=== PATIENT | female | born 1940 | race Caucasian/White ===

== ENCOUNTER 2024-02-24 11:02 | Emergency (ER) | payer OTHER, SELFPAY ==
[2024-02-24 11:10] VITALS: BP 154/67
[2024-02-24 11:33] VITALS: BMI 19.7
--- NOTE | 2024-02-24 11:46 | ED.GENMED ---
History of Present Illness
General
Chief Complaint: Extremity Pain (non-traumatic)
Source: patient and family
Exam Limitations: none
Time Seen by Provider: 02/24/24 11:25
History of Present Illness
History of Present Illness:
FOOSH injury last night. Complaining of pain right hand. No other injury or complaint no head injury no syncope
Past History
Past History
ED Past Medical History: HTN, Hypercholesterolemia and NIDDM; Negative Asthma, CAD, MO or Renal failure
ED Past Surgical History: Negative Cardiac
Social History
Tobacco: Non-smoker
Alcohol: None
Drug: None
Living: with family
Employment: Retired
Family History
Family History: Hypertension
Review of Systems
Review of Systems
All Other Systems: Not applicable
Phy Exam
Physical Exam
Physical Exam:
General: Nontoxic appearing in no distress. Normocephalic atraumatic
Neck: Nontender
Skin: Warm and dry, no rash
Neuro: Alert, nontoxic, grossly nonfocal
Psychiatric: Good eye contact and appropriate
Musculoskeletal: Swelling of the right hand mid hand with ecchymosis and tenderness. No deformity. Wrist nontender. Proximal forearm nontender.
No chest wall tenderness. Pelvis stable. No pain with hip rotation.
Course
Orders/Labs/Results
Orders:
Orders
02/24/24 11:13
Hand, Right 3 View [CR Hand - Right Min 3 Views] Urgent
Comment:
Reason For Exam: pain
Wrist, Right 3 Views [CR Wrist - Right Min 3 Views] Urgent
Comment:
Reason For Exam: pain
Vital Signs
Initial and Last Documented VS:
Initial Vital Signs
Temp Pulse Resp BP Pulse Ox
98 F 77 16 154/67 99
02/24/24 11:10 02/24/24 11:10 02/24/24 11:10 02/24/24 11:10 02/24/24 11:10
Last Documented Vital Signs
Temp Pulse Resp BP Pulse Ox
98 F 77 16 154/67 99
02/24/24 11:10 02/24/24 11:10 02/24/24 11:10 02/24/24 11:10 02/24/24 11:10
MDM/Problems Addressed
Differential Diagnosis Includes:
Spiral fracture right third metacarpal. Splint sling and orthopedic follow-up. Nothing to suspect any other injury. No syncope. No head trauma. No chest wall trauma abdomen nontender
*Radiology
Radiology exam reviewed: preliminary read by ED provider (Spiral third metacarpal fracture right hand)
*Pulse Oximetry
Patient hypoxic: no
*Critical Care Note
Total Time (30-74mins, 75-104mins- exclusive of procedures): Not Applicable
ED Attending Note
-
Portions of this chart may have been created with voice recognition software.� Occasional wrong word or��sound alike� substitutions may have occurred due to the inherent limitations of voice recognition software.
Discharge Plan
Departure
Patient Disposition: Home (Routine Discharge)
Date of Disposition: 02/24/24
Time of Disposition: 11:48
Patient with high blood pressure during this ER visit?: Yes
Discharge Problem:
Fall/right third metacarpal fracture
Instructions: Hand fracture, BLOOD PRESSURE
Prescriptions:
No Action
metformin 500 MG tablet
500 mg PO BID
alendronate [Fosamax] 70 MG tablet
70 mg PO WEEKLY
hydrocodone-acetaminophen [Vicodin] 1 EACH tablet
1 ea PO .Q4-6HPRN Qty: 20 0RF
ibuprofen 600 MG tablet
600 mg PO Q6H Qty: 30 0RF
levofloxacin 500 MG tablet
500 mg PO DAILY Qty: 10 0RF
triamterene-hydrochlorothiazid 1 EACH capsule
1 ea PO DAILY
pravastatin [Pravachol] 20 MG tablet
20 mg PO DAILY
Referrals:
Mahin Olivarez DO [Family Provider] - Follow up in 2-3 days
Akash Hughes MD [Active] - Follow up in 2-3 days
Activity Restrictions/Additional Instructions:
Call the orthopedist in am for close follow up
Interventions
Interventions:
*Risk Screen - Suicide Last Done: 02/24/24 11:33
*General Assessment Last Done: 02/24/24 11:33
*Neglect/Abuse Screening Last Done: 02/24/24 11:33
ED- Fall Risk Assessment Last Done: 02/24/24 11:33
*ED COVID-19 Vaccine History Last Done: 02/24/24 11:33
ED-Skin Assessment Last Done: 02/24/24 11:33
ED-Peripheral Vascular Assessment Last Done: 02/24/24 11:33
ED-Musculoskeletal Assessment Last Done: 02/24/24 11:33
Discharge Date and Time
Print Language: POLISH
== END 2024-02-24 11:59 | disposition home or self-care (01) ==
LOC: EMR 11:02
PROVIDERS: EMERGENCY PHYSICIAN Emergency Medicine; FAMILY PHYSICIAN Internal Medicine
DX: S62.302A Unspecified fracture of third metacarpal bone, right hand, initial encounter for closed fracture (principal); W19.XXXA Unspecified fall, initial encounter; I10 Essential (primary) hypertension
CPT/HCPCS: 99283; 73110; 73130